=== PATIENT | female | born 1960 | race Caucasian/White ===

== ENCOUNTER 2016-12-02 11:59 | Inpatient (IN) | payer BC ==
[~2016-12-02] VITALS: Ht 154.9 cm; Wt 98.2 kg
[~2016-12-02 11:59] MED LIST: CIPR-255 PO; DTR5 PO; LISI-461 PO; LPR25 PO; OXYC-57 PO; PHEN-1043 PO; VENL75CA PO; VITAMIN B-12 INJ INJ
[2016-12-02] MEDS ORDERED: KETOROLAC TROMETHAMINE 30 MG/ML VIAL IV STA (12:32)
[2016-12-02] MEDS ORDERED: ONDANSETRON INJ 2 MG/ML 2 ML VIAL IV STA (12:32)
[2016-12-02] MEDS ORDERED: SODIUM CHLORIDE 0.9% 1000ML 500 ML IV STA (12:32)
[2016-12-02] MEDS ORDERED: SODIUM CHLORIDE 0.9% 1000ML 1,000 ML IV STA (12:32)
--- NOTE | 2016-12-02 12:36 | EMERGENCY ROOM VISIT NOTE ---
History Report prepared by Ishmael: Braxton Arboleda Under the Supervision of: Dr. Luis Armando Robison M.D. First contact with patient: 12:27 Chief Complaint: FLANK PAIN Stated Complaint: RIGHT FLANK PAIN History of Present Illness The patient is a 56 year old female with a history of kidney stones and kidney cancer with a left kidney removal who presents to the Emergency Room with complaints of persistent right flank pain that started around 4 hours ago. She says that the pain has been a 10 out of 10 in severity, and has never been this bad before. The patient states that she has been nauseated as well. She says that she follows with Dr. Benson of urology, and sees him every 6 months. The patient notes that she is due to see Dr. Benson soon, and she usually has to have a stent put in when she see is passing a stone. The patient denies any vomiting, fevers, chills, or urinary symptoms. Source of History: patient Onset: 4 hours ago Position: other (right flank) Symptom Intensity: 10/10 pain - worst pain ever Timing: other (persistent) Associated Symptoms: + nausea, No fevers, No chills, No vomiting, No urinary symptoms Review of Systems See HPI for pertinent positives & negatives. A total of 10 systems reviewed and were otherwise negative. Past Medical & Surgical Medical Problems: (1) Cancer of kidney (2) History of nephrectomy, unilateral (3) Kidney stone (4) Migraine aura, persistent, intractable (5) Right ureteral calculus (6) Sepsis due to urinary tract infection (7) Ureteral calculi (8) UTI (urinary tract infection) Family History Cancer Diabetes mellitus FH: heart disease FHx: gallbladder disease Hypertension Social History Smoking Status: Never Smoker Drug Use: none Marital Status: Housing Status: lives with significant other Occupation Status: employed Current/Historical Medications Scheduled Lisinopril (Lisinopril), 10 MG PO QAM Metoprolol Tartrate (Lopressor), 12.5 MG PO QAM Venlafaxine Hcl (Effexor Xr), 75 MG PO QAM [Vitamin B-12 Inj], INJ MONTHLY Scheduled PRN Ibuprofen (Motrin), 600 MG PO DAILY PRN for Pain or Fever Allergies Coded Allergies: No Known Allergies (Verified , 12/02/16) Physical Exam Vital Signs Date Time Temp Pulse Resp B/P (MAP) Pulse Ox O2 Delivery O2 Flow Rate FiO2 12/02/16 13:29 71 20 176/100 95 Room Air 12/02/16 12:09 36.7 68 20 185/101 97 Room Air Physical Exam GENERAL: Patient is in no acute distress. HEENT: No acute trauma, normocephalic atraumatic, mucous membranes moist, no nasal congestion, no scleral icterus. NECK: No stridor, no adenopathy, no meningismus, trachea is midline. LUNGS: Clear to auscultation bilaterally, no wheeze, no rhonchi, breath sounds equal. HEART: Without murmurs gallops or rubs, regular rate and rhythm. ABDOMEN: Tender along entire right side. Soft, bowel sounds positive, no hernias , no peritonitis. BACK: Right flank discomfort with percussion. EXTREMITIES: No cyanosis or edema, full range of motion of all the joints without pain or difficulty, no signs for acute trauma. NEUROLOGIC: Oriented x 3, no acute motor or sensory deficits, no focal weakness. SKIN: No rash, no jaundice, no diaphoresis. Medical Decision & Procedures ER Provider Diagnostic Interpretation: CT results as stated below per my review and radiologist interpretation: CT OF THE ABDOMEN AND PELVIS WITHOUT CONTRAST, STONE PROTOCOL CLINICAL HISTORY: Right flank pain and hematuria. COMPARISON STUDY: [facility] October 01, [address] of the abdomen and pelvis January 02, 2010. TECHNIQUE: Helical axial images of the abdomen and pelvis were obtained without IV or oral contrast according to renal stone protocol. A dose lowering technique was utilized adhering to the principles of ALARA. FINDINGS: The left kidney is not visualized and likely is surgically absent. There is moderate right hydroureteronephrosis. Note is made of a 3 mm mid right ureteral calculus shown on image 330 of 516. There are 2 additional distal right ureteral calculi that each measure 6 mm. Multiple right renal calculi measure up to 6 mm. There is mild right perinephric and periureteral ureteral infiltration. Evaluation the remainder of the abdomen and pelvis is suboptimal on this unenhanced exam. No abnormalities are noted within the nephrectomy bed. There is fatty infiltration of the liver. Mild biliary ductal dilatation is unchanged and likely related to prior cholecystectomy. The spleen is unremarkable. There is no bowel obstruction. This colonic diverticulosis without evidence for acute diverticulitis. IMPRESSION: 1. Three right ureteral calculi, including two 6 mm distal ureteral calculi and a 3 mm mid ureteral calculus with resultant moderate right hydroureteronephrosis. 2. Right-sided nephrolithiasis. 3. Surgically absent left kidney. No abnormality within the nephrectomy bed. 4. Status post gastric bypass. No bowel obstruction. Electronically signed by: Ge Goff M.D. 12/02/2016 1:15 PM Dictated Date/Time: 12/02/2016 1:05 PM Laboratory Results 12/02/16 12:25 12/02/16 12:25 Test 12/02/16 12:25 12/02/16 12:27 Red Blood Count 4.42 M/uL (4.2-5.4) Mean Corpuscular Volume 85.1 fL (80-100) Mean Corpuscular Hemoglobin 26.5 pg (25-34) Mean Corpuscular Hemoglobin Concent 31.1 g/dl (32-36) RDW Standard Deviation 43.4 fL (36.4-46.3) RDW Coefficient of Variation 13.9 % (11.5-14.5) Mean Platelet Volume 9.2 fL (7.4-10.4) Anion Gap 6.0 mmol/L (3-11) Est Creatinine Clear Calc Drug Dose 63.4 ml/min Estimated GFR () 65.5 Estimated GFR (Non- 56.5 BUN/Creatinine Ratio 19.0 (10-20) Calcium Level 9.7 mg/dl (8.5-10.1) Urine Color YELLOW Urine Appearance CLOUDY (CLEAR) Urine pH 5.0 (4.5-7.5) Urine Specific [place] 1.016 (1.000-1.030) Urine Protein 1+ (NEG) Urine Glucose (UA) NEG (NEG) Urine Ketones NEG (NEG) Urine Occult Blood 3+ (NEG) Urine Nitrite NEG (NEG) Urine Bilirubin NEG (NEG) Urine Urobilinogen NEG (NEG) Urine Leukocyte Esterase TRACE (NEG) Urine WBC (Auto) 1-5 /hpf (0-5) Urine RBC (Auto) >30 /hpf (0-4) Urine Hyaline Casts (Auto) 1-5 /lpf (0-5) Urine Epithelial Cells (Auto) >30 /lpf (0-5) Urine Bacteria (Auto) NEG (NEG) Laboratory results reviewed by me. Medications Administered Medications (Trade) Dose Ordered Sig/Silvestre Route Start Time Stop Time Status Last Admin Dose Admin Sodium Chloride 500 ml @ 999 mls/hr Q31M STAT IV 12/02/16 12:32 12/02/16 13:02 DC 12/02/16 12:32 999 MLS/HR Ondansetron HCl (Zofran Inj) 4 mg NOW STAT IV 12/02/16 12:32 12/02/16 12:35 DC 12/02/16 12:42 4 MG Sodium Chloride 1,000 ml @ 200 mls/hr Q5H STAT IV 12/02/16 12:32 12/02/16 17:31 12/02/16 13:28 200 MLS/HR Morphine Sulfate (MoRPHine SULFATE INJ) 4 mg Q15M PRN IV 12/02/16 12:45 12/16/16 12:44 12/02/16 13:26 4 MG Ketorolac Tromethamine (Toradol Inj) 15 mg NOW STAT IV 12/02/16 12:32 12/02/16 12:35 DC 12/02/16 12:43 15 MG ED Course 1230: The patient was evaluated in room C9. A complete history and physical exam was performed. 1232: Ordered Toradol Inj 15 mg IV, NSS 1000 ml @ 200 mls/hr IV, Zofran Inj 4 mg IV, NSS 500 ml @ 999 mls/hr IV. 1245: Ordered Morphine Sulfate Inj 4 mg IV PRN. 1328: I discussed the patient with Pam Marie PA-C for Dr. Benson ( [facility] urology) - she will talk to the attending (Dr. Cespedes) about stenting the patient today or tomorrow. Regardless, the patient will be brought into the hospital, and she told me to call the hospitalist. 1332: Upon reexamination the patient is resting. I discussed results and treatment plan with the patient. She verbalizes agreement and understanding. The patient will be evaluated for further management. 1345: I discussed the patient with Dr. Hemphill - [facility] hospitalist - he will evaluate the patient for further treatment. Medical Decision Differential diagnosis includes but is not limited to renal colic, UTI, renal failure, hydronephrosis, musculoskeletal pain, dehydration. There is a mild leukocytosis, this could be consistent with infection or just her pain. No anemia. No significant electrolyte abnormality or kidney failure. Urinalysis does not show infection but hematuria was noted. Abdominal and pelvis CT shows 3 fairly large stones in the right ureter causing hydronephrosis. The patient received IV saline, IV Toradol, IV Zofran and IV morphine, she still has pain but the pain is improved. I spoke to urology. Admission/observation was recommended--she only has one kidney. That kidney right now is obstructed. She will likely require a ureteral stent. I spoke to case management and the patient. The on-call hospitalist was consulted. Medication Reconcilliation Current Medication List: was personally reviewed by me Blood Pressure Screening Patient's blood pressure: Elevated blood pressure Blood pressure disposition: Elevated BP felt to be situational Consults Time Called: 1325 Consulting Physician: Pam Marie PA-C for Dr. Benson ([facility] urology) Returned Call: 1328 I discussed the patient with Pam Marie PA-C for Dr. Benson ([facility] urology) - she will talk to the attending (Dr. Cespedes) about stenting the patient today or tomorrow. Regardless, the patient will be brought into the hospital, and she told me to call the hospitalist. Additional Consults: Time Called: 1340 Consulted Physician[facility] Returned Call: 1345 (in person) Additional Comments: I discussed the patient with Dr. Joby ONTIVEROS hospitalist - he will evaluate the patient for further treatment. Impression Primary Impression: Renal colic Additional Impression: Hydronephrosis Scribe Attestation The scribe's documentation has been prepared under my direction and personally reviewed by me in its entirety. I confirm that the note above accurately reflects all work, treatment, procedures, and medical decision making performed by me. Departure Information Dispostion Being Evaluated By Hospitalist Referrals No Doctor, Assigned (PCP) Patient Instructions My [facility] Problem Qualifiers
[2016-12-02] MEDS: MoRPHine SULFATE 4 MG/ML 1 ML CARP\\VIAL IV PRN ×2 (12:44→13:26)
[2016-12-02 13:02] LABS: HEMATOCRIT 37.6 % (37-47); MEAN CELL VOLUME 85.1 fL (80-100); MEAN CORPUSCULAR HEMOGLOBIN 26.5 pg (25-34); MEAN CORPUSCULAR HGB CONC 31.1 g/dl (32-36); MEAN PLATELET VOLUME 9.2 fL (7.4-10.4); PLATELET COUNT 334 K/uL (130-400); RED BLOOD COUNT 4.42 M/uL (4.2-5.4); WHITE BLOOD COUNT 11.52 K/uL (4.8-10.8)
--- NOTE | 2016-12-02 13:16 | DIAGNOSTIC IMAGING REPORT ---
CT OF THE ABDOMEN AND PELVIS WITHOUT CONTRAST, STONE PROTOCOL CLINICAL HISTORY: Right flank pain and hematuria. COMPARISON STUDY: [facility] October 01, [address] of the abdomen and pelvis January 02, 2010. TECHNIQUE: Helical axial images of the abdomen and pelvis were obtained without IV or oral contrast according to renal stone protocol. A dose lowering technique was utilized adhering to the principles of ALARA. FINDINGS: The left kidney is not visualized and likely is surgically absent. There is moderate right hydroureteronephrosis. Note is made of a 3 mm mid right ureteral calculus shown on image 330 of 516. There are 2 additional distal right ureteral calculi that each measure 6 mm. Multiple right renal calculi measure up to 6 mm. There is mild right perinephric and periureteral ureteral infiltration. Evaluation the remainder of the abdomen and pelvis is suboptimal on this unenhanced exam. No abnormalities are noted within the nephrectomy bed. There is fatty infiltration of the liver. Mild biliary ductal dilatation is unchanged and likely related to prior cholecystectomy. The spleen is unremarkable. There is no bowel obstruction. This colonic diverticulosis without evidence for acute diverticulitis. IMPRESSION: 1. Three right ureteral calculi, including two 6 mm distal ureteral calculi and a 3 mm mid ureteral calculus with resultant moderate right hydroureteronephrosis. 2. Right-sided nephrolithiasis. 3. Surgically absent left kidney. No abnormality within the nephrectomy bed. 4. Status post gastric bypass. No bowel obstruction. Electronically signed by: Ge Goff M.D. 12/02/2016 1:15 PM Dictated Date/Time: 12/02/2016 1:05 PM
[2016-12-02] MEDS ORDERED: IBUP-1450 PO (13:18)
[2016-12-02 13:19] LABS: CALCIUM 9.7 mg/dl (8.5-10.1); CREATININE 1.1 mg/dl (0.60-1.20); POTASSIUM 4.1 mmol/L (3.5-5.1)
[2016-12-02] MEDS ORDERED: ONDANSETRON INJ 2 MG/ML 2 ML VIAL IV PRN (14:00)
[2016-12-02 14:07] LABS: URINE APPEARANCE CLOUDY (CLEAR); URINE BILIRUBIN NEG (NEG); URINE COLOR YELLOW; URINE EPITHELIAL CELL AUTO >30 /lpf (0-5); URINE NITRITE NEG (NEG); URINE SPECIFIC GRAVITY 1.016 (1.000-1.030); UROBILINOGEN NEG (NEG); ZZUR CULT IF INDIC CLEAN CATCH NO
[2016-12-02 14:10] LABS: MANUAL MICROSCOPIC REQUIRED? NO; REVIEW REQ? NO
--- NOTE | 2016-12-02 14:40 | DIAGNOSTIC IMAGING REPORT ---
CHEST 2 VIEWS ROUTINE HISTORY: 56 years-old Female preoperative exam. No acute chest complaints. COMPARISON: Portable chest radiograph 08/21/2015 TECHNIQUE: Frontal and lateral views of the chest. FINDINGS: Cardiomediastinal and hilar silhouettes are within normal limits. Mild elevation of the right hemidiaphragm persists without pneumothorax, pleural effusion or focal airspace consolidation. No overt pulmonary edema. Surgical clips are noted within the upper abdomen. IMPRESSION: Unchanged mild right hemidiaphragmatic elevation without acute cardiopulmonary process. The above report was generated using voice recognition software. It may contain grammatical, syntax or spelling errors. Electronically signed by: Simone Blankenship M.D. 12/02/2016 2:38 PM Dictated Date/Time: 12/02/2016 2:37 PM
--- NOTE | 2016-12-02 14:49 | History and Physical ---
History & Physical Date & Time of Service: Dec 02, 2016 at 14:42 Chief Complaint: Right Flank Pain Primary Care Physician: Simon Ty M.D. History of Present Illness Source: patient, spouse, hospital records The patient is a 56-year-old female who is status post left nephrectomy due to renal cell cancer, who presents emergency department with persistent right flank pain that began about 4 hours prior to arrival. She has a known history of kidney stones, and reports the pain is similar to previous. She's also had some nausea without vomiting. She follows with , whom she sees approximately every 6 months. She has had a history of ureteral stents in the past. Past Medical/Surgical History Medical Problems: (1) Cancer of kidney Status: Chronic (2) History of nephrectomy, unilateral Status: Resolved (3) Kidney stone Status: Chronic Family History Cancer Diabetes mellitus FH: heart disease FHx: gallbladder disease Hypertension Social History Smoking Status: Never Smoker Smokeless Tobacco Use: No Alcohol Use: none Drug Use: none Marital Status: Housing status: lives with family Occupational Status: employed Immunizations History of Influenza Vaccine: No History of Tetanus Vaccine?: Yes History of Pneumococcal: No History of Hepatitis B Vaccine: Yes Multi-Drug Resistant Organisms History of MDRO: No Allergies Coded Allergies: No Known Allergies (Verified , 12/02/16) Home Medications Scheduled Lisinopril (Lisinopril), 10 MG PO QAM Metoprolol Tartrate (Lopressor), 12.5 MG PO QAM Venlafaxine Hcl (Effexor Xr), 75 MG PO QAM [Vitamin B-12 Inj], INJ MONTHLY Scheduled PRN Ibuprofen (Motrin), 600 MG PO DAILY PRN for Pain or Fever Review of Systems The patient denies chest pain, palpitations, shortness of breath, cough, lower extremity swelling, vision change, hearing change, sore throat, fevers, chills, sweats, weight change, fatigue, vomiting, diarrhea or constipation, blood in urine or stool, dysuria, urinary frequency or urgency, lightheadedness, dizziness, headache, memory loss, rash, abnormal bruising or bleeding, imbalance , focal or generalized weakness, numbness or tingling in arms or legs, generalized arthralgias or myalgias, neck pain, night sweats, or allergy symptoms. The review of systems is otherwise negative other than for that already noted above, and at least 10 systems have been reviewed. Physical Exam Vital Signs Date Time Temp Pulse Resp B/P (MAP) Pulse Ox O2 Delivery O2 Flow Rate FiO2 12/02/16 13:29 71 20 176/100 95 Room Air 12/02/16 12:09 36.7 68 20 185/101 97 Room Air The patient is awake, well-developed and adequately nourished, alert and oriented 3, normocephalic and atraumatic, lying in bed and in no acute distress. HEENT--PERRL, EOMI, mucous membranes and oropharynx dry. Neck--supple, no JVD or bruits, thyroid normal, trachea midline, no adenopathy. Heart--normal S1 and S2, no extra beats, no murmurs, rubs or gallops. Lungs--clear bilaterally with good air movement, no respiratory distress, no accessory muscle use. Abdomen--normal bowel sounds and soft, nontender and nondistended, no hernias or masses, no organomegaly. Right flank pain upon palpation. Extremities--no cyanosis, clubbing or edema. There are good distal pulses b/l. Dermatologic--normal skin turgor, normal color, warm and dry, no abnormal lymph nodes, no rash. Neurologic--cranial nerves II through XII grossly intact, motor and sensory examination normal. Rheumatologic--normal range of motion, nontender, muscles and joints. Psychiatric--normal affect. Diagnostics Laboratory Results Results Past 24 Hours Test 12/02/16 12:25 12/02/16 12:27 Range/Units White Blood Count 11.52 4.8-10.8 K/uL Red Blood Count 4.42 4.2-5.4 M/uL Hemoglobin 11.7 12.0-16.0 g/dL Hematocrit 37.6 37-47 % Mean Corpuscular Volume 85.1 80-100 fL Mean Corpuscular Hemoglobin 26.5 25-34 pg Mean Corpuscular Hemoglobin Concent 31.1 32-36 g/dl RDW Standard Deviation 43.4 36.4-46.3 fL RDW Coefficient of Variation 13.9 11.5-14.5 % Platelet Count 334 130-400 K/uL Mean Platelet Volume 9.2 7.4-10.4 fL Sodium Level 142 136-145 mmol/L Potassium Level 4.1 3.5-5.1 mmol/L Chloride Level 108 98-107 mmol/L Carbon Dioxide Level 28 21-32 mmol/L Anion Gap 6.0 3-11 mmol/L Blood Urea Nitrogen 21 7-18 mg/dl Creatinine 1.10 0.60-1.20 mg/dl Est Creatinine Clear Calc Drug Dose 63.4 ml/min Estimated GFR () 65.5 Estimated GFR (Non- 56.5 BUN/Creatinine Ratio 19.0 10-20 Random Glucose 117 70-99 mg/dl Calcium Level 9.7 8.5-10.1 mg/dl Urine Color YELLOW Urine Appearance CLOUDY CLEAR Urine pH 5.0 4.5-7.5 Urine Specific Ola 1.016 1.000-1.030 Urine Protein 1+ NEG Urine Glucose (UA) NEG NEG Urine Ketones NEG NEG Urine Occult Blood 3+ NEG Urine Nitrite NEG NEG Urine Bilirubin NEG NEG Urine Urobilinogen NEG NEG Urine Leukocyte Esterase TRACE NEG Urine WBC (Auto) 1-5 0-5 /hpf Urine RBC (Auto) >30 0-4 /hpf Urine Hyaline Casts (Auto) 1-5 0-5 /lpf Urine Epithelial Cells (Auto) >30 0-5 /lpf Urine Bacteria (Auto) NEG NEG Microbiology Results 12/02/16 Urine Culture, Received Pending Diagnostic Radiology Patient Name: ISAIAH IVY Unit Number: [id number] Dictated: 12/02/161304 Transcribed: 12/02/161304 Printed Date/Time: [~ rep prt dt]/[~ rep prt tm] [~ rep ct labl] - [~ rep ct ivnm] [facility] [place] [address] Dictated: 12/02/161304 Transcribed: 12/02/161304 Printed Date/Time: [~ rep prt dt]/[~ rep prt tm] [~ rep ct labl] - [~ rep ct ivnm] [~ rep ct add3]] CT OF THE ABDOMEN AND PELVIS WITHOUT CONTRAST, STONE PROTOCOL CLINICAL HISTORY: Right flank pain and hematuria. COMPARISON STUDY: [facility] October 01, [address] of the abdomen and pelvis January 02, 2010. TECHNIQUE: Helical axial images of the abdomen and pelvis were obtained without IV or oral contrast according to renal stone protocol. A dose lowering technique was utilized adhering to the principles of ALARA. FINDINGS: The left kidney is not visualized and likely is surgically absent. There is moderate right hydroureteronephrosis. Note is made of a 3 mm mid right ureteral calculus shown on image 330 of 516. There are 2 additional distal right ureteral calculi that each measure 6 mm. Multiple right renal calculi measure up to 6 mm. There is mild right perinephric and periureteral ureteral infiltration. Evaluation the remainder of the abdomen and pelvis is suboptimal on this unenhanced exam. No abnormalities are noted within the nephrectomy bed. There is fatty infiltration of the liver. Mild biliary ductal dilatation is unchanged and likely related to prior cholecystectomy. The spleen is unremarkable. There is no bowel obstruction. This colonic diverticulosis without evidence for acute diverticulitis. IMPRESSION: 1. Three right ureteral calculi, including two 6 mm distal ureteral calculi and a 3 mm mid ureteral calculus with resultant moderate right hydroureteronephrosis. 2. Right-sided nephrolithiasis. 3. Surgically absent left kidney. No abnormality within the nephrectomy bed. 4. Status post gastric bypass. No bowel obstruction. Electronically signed by: Ge Goff M.D. 12/02/2016 1:15 PM Dictated Date/Time: 12/02/2016 1:05 PM The status of this report is Signed. Draft = Not yet reviewed or approved by Radiologist. Signed = Reviewed and approved by Radiologist. <AttendingPhy></AttendingPhy> <FamilyPhy></FamilyPhy> <PrimaryPhy>No Doctor, Assigned</PrimaryPhy> <UnitNumber>[id number]</UnitNumber> <VisitNumber> [id number]</VisitNumber> <PatientName>ISAIAH IVY</PatientName> <DateOfBirth> 1960</DateOfBirth> <Location>[facility]</Location> <ServiceDate>12/02/16</ ServiceDate> <MNE>ESINDI</MNE> <OrderingPhy>Luis Armando Robison M.D.</OrderingPhy> < OrderingPhyMNE>f rep ord dr geiger</OrderingPhyMNE> <DictatingPhyMNE>f rep dict dr mne</DictatingPhyMNE> <CCListMNE>f rep ct mne</CCListMNE> <AdmittingPhyMNE>f pt admit dr geiger</AdmittingPhyMNE> <AttendingPhyMNE>f pt attend dr geiger</ AttendingPhyMNE> <ConsultingPhyMNE>f pt consult dr geiger</ConsultingPhyMNE> <FamilyPhyMNE>f pt fam dr geiger</FamilyPhyMNE> <OtherPhyMNE>f pt other dr geiger</OtherPhyMNE> < PrimaryPhyMNE>f pt prim care dr geiger</PrimaryPhyMNE> <ReferringPhyMNE>f pt referring dr geiger</ReferringPhyMNE> Patient Name: ISAIAH IVY Unit Number: [id number] Dictated: 12/02/161436 Transcribed: 12/02/161436 JRB Printed Date/Time: [~ rep prt dt]/[~ rep prt tm] [~ rep ct labl] - [~ rep ct ivnm] [facility] [place] [address] Dictated: 12/02/161436 Transcribed: 12/02/161436 JRB Printed Date/Time: [~ rep prt dt]/[~ rep prt tm] [~ rep ct labl] - [~ rep ct ivnm] [~ rep ct add3]] CHEST 2 VIEWS ROUTINE HISTORY: 56 years-old Female preoperative exam. No acute chest complaints. COMPARISON: Portable chest radiograph 08/21/2015 TECHNIQUE: Frontal and lateral views of the chest. FINDINGS: Cardiomediastinal and hilar silhouettes are within normal limits. Mild elevation of the right hemidiaphragm persists without pneumothorax, pleural effusion or focal airspace consolidation. No overt pulmonary edema. Surgical clips are noted within the upper abdomen. IMPRESSION: Unchanged mild right hemidiaphragmatic elevation without acute cardiopulmonary process. The above report was generated using voice recognition software. It may contain grammatical, syntax or spelling errors. Electronically signed by: Simone Blankenship M.D. 12/02/2016 2:38 PM Dictated Date/Time: 12/02/2016 2:37 PM The status of this report is Signed. Draft = Not yet reviewed or approved by Radiologist. Signed = Reviewed and approved by Radiologist. <AttendingPhy></AttendingPhy> <FamilyPhy>Simon Ty M.D.</FamilyPhy> < PrimaryPhy>Simon Ty M.D.</PrimaryPhy> <UnitNumber>[id number]</UnitNumber > <VisitNumber>[id number]</VisitNumber> <PatientName>ISAIAH IVY</PatientName > <DateOfBirth>1960</DateOfBirth> <Location>[facility]</Location> <ServiceDate> 12/02/16</ServiceDate> <MNE>ESINDI</MNE> <OrderingPhy>Pam Geller</ OrderingPhy> <OrderingPhyMNE>f rep ord dr geiger</OrderingPhyMNE> <DictatingPhyMNE> f rep dict dr geiger</DictatingPhyMNE> <CCListMNE>f rep ct juanjo</CCListMNE> < AdmittingPhyMNE>f pt admit dr geiger</AdmittingPhyMNE> <AttendingPhyMNE>f pt attend dr geiger</AttendingPhyMNE> <ConsultingPhyMNE>f pt consult dr geiger</ConsultingPhyMNE> <FamilyPhyMNE>f pt fam dr geiger</FamilyPhyMNE> <OtherPhyMNE>f pt other dr geiger</OtherPhyMNE> < PrimaryPhyMNE>f pt prim care dr geiger</PrimaryPhyMNE> <ReferringPhyMNE>f pt referring dr geiger</ReferringPhyMNE> Impression Assessment and Plan Right ureteral calculi 3 with moderate right hydronephrosis/status post left nephrectomy for renal cell cancer--the patient be admitted to medical surgical floor. Nothing by mouth except medications. NSS with KCl 20 mEq at 100 mils per hour. Ceftriaxone 1 g IV daily. Follow urine culture and sensitivity. Dilaudid 0.5-1 mg IV every 2 hours when necessary severe pain. Consult her urologist Dr. Benson. Patient should avoid NSAIDs both inpatient and outpatient, in particular in combination with MIKO inhibitors. Hypertension--continue metoprolol tartrate the change from 12.5 mg every morning to twice a day. Follow-up lisinopril 10 mg by mouth every morning. Depression--continue Effexor XR 75 mg by mouth every morning Vitamin B12 deficiency-- gets monthly injections. Level of Care Med/Surg Advanced Directives Existing Advance Directive: No Existing Living Will: No Existing Power of Warehouse Distribution Manager: No Resuscitation Status FULL RESUSCITATION VTE Prophylaxis VTE Risk Assessment Done? Y/N: Yes Risk Level: Moderate Given or contraindicated: SCD's Social Service Consult None Apply
[2016-12-02 15:41] VITALS: BP 158/81; PULSE 81; TEMP 36.7; O2SAT 91
[2016-12-02] MEDS ORDERED: CEFTRIAXONE SOD INJ 1 GM in DEXTROSE 5% ADD-VANTAGE 50ML 50 ML IV SCH (16:00)
[2016-12-02] MEDS: NSS + 20MEQ KCL 1000ML 1,000 ML IV SCH (16:01)
[2016-12-02 16:08] VITALS: Ht 154.9 cm; Wt 98.2 kg
[2016-12-02] MEDS: HYDROmorphone INJ 1 MG/ML SYR IV PRN ×2 (16:44→19:26)
[2016-12-02] MEDS: FAMOTIDINE IV INJ 20 MG in DEXTROSE 5% 100ML 100 ML IV SCH (17:41)
[2016-12-02] MEDS: METOPROLOL TARTRATE 25 MG TAB PO SCH (21:08)
[2016-12-02] MEDS: ACETAMINOPHEN 325 MG TAB PO PRN (21:08)
[2016-12-02] MEDS: HYDROmorphone INJ 0.5 MG/0.5 ML SYR IV PRN (22:15)
[2016-12-03] VITALS: O2SAT 94
[2016-12-03 00:27] VITALS: BP 119/70; PULSE 57; TEMP 36.6; O2SAT 96
[2016-12-03] MEDS: NSS + 20MEQ KCL 1000ML 1,000 ML IV SCH (01:50)
[2016-12-03] MEDS: HYDROmorphone INJ 0.5 MG/0.5 ML SYR IV PRN (01:50)
[2016-12-03] MEDS: FAMOTIDINE IV INJ 20 MG in DEXTROSE 5% 100ML 100 ML IV SCH (06:03)
[2016-12-03] MEDS: ACETAMINOPHEN 325 MG TAB PO PRN (06:06)
[2016-12-03] MEDS ORDERED: CIPROFLOXACIN 400MG / 200ML D5W IV ONE (07:35)
--- NOTE | 2016-12-03 07:42 | Urology Consultation ---
History General Date of Service: Dec 03, 2016. Chief Complaint: right flank pain Primary Care Physician: Simon Ty M.D. Pt seen a urologist before?: Yes (Dr. Clifford Benson) If yes, why?: nephrolithiasis History of Present Illness 56 yo female presents to [facility] with c/o right flank pain that started yesterday. The pain was accompanied by nausea. Denies dysuria or hematuria. CT scan shows a she is passing 3 right ureteral stones. The largest is a 6mm distal right ureteral stone. She does have a previous hx of stones requiring ESWL and URS/LL in the past. She sees Dr. Benson for this issue. She is mononephric d/t hx of RCC. Labs pending this morning. UC&S pending as well. Imaging Imaging: CT Laboratory Last 24 Hours Test 12/02/16 12:25 12/02/16 12:27 12/03/16 04:44 White Blood Count 11.52 K/uL Red Blood Count 4.42 M/uL Hemoglobin 11.7 g/dL Hematocrit 37.6 % Mean Corpuscular Volume 85.1 fL Mean Corpuscular Hemoglobin 26.5 pg Mean Corpuscular Hemoglobin Concent 31.1 g/dl RDW Standard Deviation 43.4 fL RDW Coefficient of Variation 13.9 % Platelet Count 334 K/uL Mean Platelet Volume 9.2 fL Sodium Level 142 mmol/L Potassium Level 4.1 mmol/L Chloride Level 108 mmol/L Carbon Dioxide Level 28 mmol/L Anion Gap 6.0 mmol/L Blood Urea Nitrogen 21 mg/dl Creatinine 1.10 mg/dl Est Creatinine Clear Calc Drug Dose 63.4 ml/min Estimated GFR () 65.5 Estimated GFR (Non- 56.5 BUN/Creatinine Ratio 19.0 Random Glucose 117 mg/dl Calcium Level 9.7 mg/dl Urine Color YELLOW Urine Appearance CLOUDY Urine pH 5.0 Urine Specific Harmans 1.016 Urine Protein 1+ Urine Glucose (UA) NEG Urine Ketones NEG Urine Occult Blood 3+ Urine Nitrite NEG Urine Bilirubin NEG Urine Urobilinogen NEG Urine Leukocyte Esterase TRACE Urine WBC (Auto) 1-5 /hpf Urine RBC (Auto) >30 /hpf Urine Hyaline Casts (Auto) 1-5 /lpf Urine Epithelial Cells (Auto) >30 /lpf Urine Bacteria (Auto) NEG Problem List Medical Problems: (1) Fever Status: Acute (2) Hydronephrosis Status: Acute (3) Renal colic Status: Acute Past History cancer (RCC), hypertension, kidney stones, other (Vit B12 deficiency) Past Surgical History: , cholecystectomy, gastric bypass, hysterectomy , lithotripsy, nephrectomy, ureteral stent Family History Cancer Diabetes mellitus FH: heart disease FHx: gallbladder disease Hypertension Social History Hx Tobacco Use In Past Year?: No Smoking: non-smoker Alcohol: never Marital status: Housing status: lives with family Occupation status: employed Immunizations History of Influenza Vaccine: No History of Tetanus Vaccine?: Yes History of Pneumococcal: No History of Hepatitis B Vaccine: Yes History of MDRO No Allergies Coded Allergies: No Known Allergies (Verified , 12/02/16) Medications Home Medications: Home Meds and Scripts Medications Dose Route/Sig Max Daily Dose Days Date Category Dose Instructions Motrin (Ibuprofen) 600 Mg Tab 600 Mg PO DAILY PRN 12/02/16 Reported TAKE WITH FOOD Effexor Xr (Venlafaxine Hcl) 75 Mg Cap 75 Mg PO QAM 30 08/21/15 Reported Lisinopril 10 Mg Tab 10 Mg PO QAM 08/14/15 Reported [Vitamin B-12 Inj] INJ MONTHLY 08/01/12 Reported Lopressor (Metoprolol Tartrate) 25 Mg Tab 12.5 Mg PO QAM 08/01/12 Reported Inpatient Medications: Current Inpatient Medications Medications (Trade) Dose Ordered Sig/Silvestre Route Start Time Stop Time Status Last Admin Dose Admin Ceftriaxone Sodium 1 gm/ Dextrose 50 ml @ 100 mls/hr Q24H IV 12/02/16 16:00 12/12/16 15:59 12/02/16 16:02 100 MLS/HR Acetaminophen (Tylenol Tab) 650 mg Q4H PRN PO 12/02/16 14:00 01/01/17 13:59 12/03/16 06:06 650 MG Ondansetron HCl (Zofran Inj) 4 mg Q6H PRN IV 12/02/16 14:00 01/01/17 13:59 Potassium Chloride/Sodium Chloride 1,000 ml @ 100 mls/hr Q10H IV 12/02/16 16:00 01/01/17 15:59 12/03/16 01:50 100 MLS/HR Famotidine 20 mg/ Dextrose 102 ml @ 200 mls/hr Q12H IV 12/02/16 18:00 01/01/17 17:59 12/03/16 06:03 200 MLS/HR Hydromorphone HCl (Dilaudid Inj) 1 mg Q2H PRN IV 12/02/16 14:00 12/16/16 13:59 12/02/16 19:26 1 MG Hydromorphone HCl (Dilaudid Inj) 0.5 mg Q2H PRN IV 12/02/16 14:00 12/16/16 13:59 12/03/16 01:50 0.5 MG Lisinopril (Zestril Tab) 10 mg QAM PO 12/03/16 08:00 01/02/17 08:59 Metoprolol Tartrate (Lopressor Tab) 12.5 mg BID PO 12/02/16 20:00 01/01/17 20:59 12/02/16 21:08 12.5 MG Venlafaxine HCl (effeXOR EXTENDED REL CAP) 75 mg QAM PO 12/03/16 08:00 01/02/17 08:59 Review of Systems Review of Systems Constitutional: No fever, No chills Eyes: No double vision Neurological: No dizzy Endocrine: No excessive thirst Gastrointestinal: + abdominal pain (RLQ and flank ), No nausea, No vomiting Cardiovascular: No chest pain Respiratory: No shortness of breath Skin: No rash Musculoskeletal: + back pain (right low back and flank ) Female : No painful urination, No blood in urine Physical Exam Vital Signs: Vital Signs Past 12 Hours Date Time Temp Pulse Resp B/P (MAP) Pulse Ox O2 Delivery O2 Flow Rate FiO2 12/03/16 00:27 36.6 57 18 119/70 (86) 96 Room Air 12/03/16 00:00 94 Room Air Physical Exam: General Appearance: no apparent distress, + obese Eyes: bilateral eyes normal inspection ENT: hearing grossly normal Neck: no JVD Respiratory/Chest: no respiratory distress, no accessory muscle use Cardiovascular: no JVD Extremities: normal inspection Neurologic/Psychiatric: alert, normal mood/affect, oriented x 3 Skin: normal color Assessment & Plan Assessment & Plan Treatment Planned: cystoscopy w/ stent A/P: Right ureteral stone x 3 AFVSS. Recommend cysto with right ureteral stent placement this morning as the pt is mononephric. Risks and benefits of the procedure discussed with the pt. All questions answered. Pt agrees to the procedure at this time. Consent obtained. Pre-op chest x-ray and EKG obtained. Will provide pre-op Cipro. Will plan for definitive stone management as an outpatient with ESWL vs URS/LL. Thanks for the consult. Will continue to follow along with primary service.
[2016-12-03] MEDS ORDERED: MIDAZOLAM HCL 1 MG/ML 2ML VIAL ONE (07:43)
[2016-12-03] MEDS ORDERED: LIDOCAINE HCL 2% 2 ML VIAL (20MG/ML) ONE (07:43)
[2016-12-03] MEDS ORDERED: ONDANSETRON INJ 2 MG/ML 2 ML VIAL ONE (07:43)
[2016-12-03] MEDS ORDERED: PROPOFOL IV EMULSION 10 MG/ML 20 ML VIAL IV ONE (07:43)
[2016-12-03] MEDS ORDERED: FENTANYL CITRATE INJ 50 MCG/1 ML 2 ML VIAL ONE (07:43)
[2016-12-03] MEDS ORDERED: DEXAMETHASONE SOD INJ 4 MG/ML VIAL ONE (07:43)
[2016-12-03 07:54] LABS: BASO % 0.3 %; BASO ABS # 0.02 K/uL (0-0.2); COMPLETE YES; EOS % 2.1 %; HEMATOCRIT 33.5 % (37-47); IG% 0.3 %; LYMPH % 31.2 %; LYMPH ABS # 2.04 K/uL (1.2-3.4); MEAN CELL VOLUME 85.9 fL (80-100); MEAN CORPUSCULAR HEMOGLOBIN 27.2 pg (25-34); MEAN CORPUSCULAR HGB CONC 31.6 g/dl (32-36); MONO % 6.7 %; NEUT % 59.4 %; PLATELET COUNT 257 K/uL (130-400); WHITE BLOOD COUNT 6.54 K/uL (4.8-10.8)
[2016-12-03 07:56] VITALS: BP 143/85; PULSE 73; TEMP 36.8; O2SAT 93
[2016-12-03] MEDS ORDERED: LISINOPRIL 10 MG TAB PO SCH (08:00)
[2016-12-03] MEDS ORDERED: VENLAFAXINE HCL XR 75 MG CAPXR PO SCH (08:00)
[2016-12-03] MEDS ORDERED: ATROPINE SULFATE 0.1 MG/ML 5ML SYR IV PRN (08:15)
[2016-12-03] MEDS ORDERED: FENTANYL CITRATE INJ 50 MCG/1 ML 2 ML VIAL IV PRN (08:15)
[2016-12-03] MEDS ORDERED: EpHEDrine SULFATE INJ 50 MG/ML AMP IV PRN (08:15)
[2016-12-03] MEDS ORDERED: ONDANSETRON INJ 2 MG/ML 2 ML VIAL IV PRN (08:15)
[2016-12-03 08:28] LABS: CALCIUM 8.9 mg/dl (8.5-10.1); CREATININE 0.99 mg/dl (0.60-1.20); MAGNESIUM 2.3 mg/dl (1.8-2.4); POTASSIUM 4.2 mmol/L (3.5-5.1)
--- NOTE | 2016-12-03 08:52 | DIAGNOSTIC IMAGING REPORT ---
KUB HISTORY: Renal STONES COMPARISON: KUB 10/01/2015. Abdomen and pelvis CT 12/02/2016. FINDINGS: The bowel gas pattern is unremarkable. There are no dilated loops of small bowel to suggest an obstruction. Stable round calcifications within the left pelvis consistent with phleboliths. No pneumoperitoneum or pneumatosis. There are 2 stones within the lower pole of the right kidney with the largest measuring 6 mm. A 7 mm calcification within the right deep pelvis is demonstrated to be a phlebolith on the previous study. No right ureteral calculi identified. Surgical clips within the left upper quadrant consistent with prior left nephrectomy and gastric bypass. IMPRESSION: 1. Stable right-sided nephrolithiasis. 2. No ureteral calculi. Electronically signed by: Garrett Jean Baptiste M.D. 12/03/2016 8:51 AM Dictated Date/Time: 12/03/2016 8:48 AM
[2016-12-03] MEDS ORDERED: CONRAY 30% 150ML BOTTLE ONE (09:14)
--- NOTE | 2016-12-03 09:58 | [facility] Post Operative Brief Note ---
Immediate Operative Summary Operative Date Dec 03, 2016. Pre-Operative Diagnosis Right ureteral and renal stones, solitary kidney Post-Operative Diagnosis Same as preop Procedure(s) Performed Cystoscopy, Right Retrograde pyleogram, right Ureteral Stent insertion Surgeon Dr. Derian Cespedes Cnc Machine Setter Surgeon(s) NA Estimated Blood Loss 0 ml Findings Good stent position after completion, stones not clearly seen on housing relocation despite being present on KUB Specimens None, as per surgeon Drains 6 fr multilength ureteral stent Anesthesia MAC Complication(s) None Disposition Recovery Room / PACU
[2016-12-03] MEDS ORDERED: OXYC-57 PO (10:00)
[2016-12-03] MEDS ORDERED: CIPR250T3 PO (10:00)
--- NOTE | 2016-12-03 10:02 | Discharge Instructions ---
Discharge Instructions Date of Service Dec 03, 2016. Admission Reason for Admission: Right Flank Pain Discharge Discharge Diagnosis / Problem: R ureteral stones s/p stent in solitary kidney Discharge Goals Goal(s): Improve function, Improve disease control, Therapeutic intervention Activity Recommendations Activity Limitations: as noted below Lifting Limitations: no more than 25 pounds, gradually increase as tolerated Exercise/Sports Limitations: rest today, gradually increase as tolerated May Resume Sexual Activity: when tolerated Shower/Bathe: no limitations Driving or Machine Use: resume 1 day after discharge . Instructions / Follow-Up Instructions / Follow-Up Office will call to arrange for f/u - call if haven't been contacted by tomorrow morning Discharge Diet Recommended Diet: Regular Diet (good fluid intake) Procedures Procedures Performed: Cystoscopy, Right Retrograde pyleogram, right Ureteral Stent insertion Pending Studies Studies pending at discharge: no Medical Emergencies . Who to Call and When: Medical Emergencies: If at any time you feel your situation is an emergency, please call 911 immediately. . Non-Emergent Contact Non-Emergency issues call your: Urologist Call Non-Emergent contact if: you have a fever, temperature is above 101, your pain is not controlled, your pain is worsening, your pain is unusual for you, your pain is concerning you, you have any medication questions . . "Provider Documentation" section prepared by Jamari Cespedes. . VTE Core Measure Inpt VTE Proph given/why not?: SCD's [place] Drug Monitoring Program Search Results: patient reviewed within database, no issues identified
[2016-12-03] MEDS ORDERED: PHEN-939 PO (10:03)
[2016-12-03] MEDS ORDERED: OXYCODONE/ACETAMINOPHEN 5-325 TAB PO PRN (10:15)
[2016-12-03] MEDS ORDERED: PHENAZOPYRIDINE HCL 100 MG TAB PO PRN (10:15)
--- NOTE | 2016-12-03 10:28 | DIAGNOSTIC IMAGING REPORT ---
RETROGRADE INCLUDES KUB HISTORY: RIGHT STENT, POSSIBLE LASER FLUOROSCOPY TIME: 31 seconds. FINDINGS: 4 fluoroscopic spot images were submitted for review. Initial images demonstrate contrast opacification the right ureter and a retrograde fashion. This is followed by placement of a right ureteral stent. Only the proximal portion of the stent is identified and appears to be in good position. IMPRESSION: Fluoroscopy provided for right ureteral stent placement.. Electronically signed by: Garrett Jean Baptiste M.D. 12/03/2016 10:27 AM Dictated Date/Time: 12/03/2016 10:26 AM
[2016-12-03 10:38] VITALS: BP 136/83; PULSE 74; TEMP 37; O2SAT 94
[2016-12-03] MEDS: METOPROLOL TARTRATE 25 MG TAB PO SCH (11:16)
--- NOTE | 2016-12-03 11:22 | Anesthesiology Progress Note ---
Anesthesia Post Op Note Date & Time Dec 03, 2016 at 11:22 Vital Signs Pain Intensity: 0 Vital Signs Past 12 Hours Date Time Temp Pulse Resp B/P (MAP) Pulse Ox O2 Delivery O2 Flow Rate FiO2 12/03/16 10:38 37.0 74 16 136/83 (100) 94 Room Air 12/03/16 10:15 60 16 158/76 91 Room Air 12/03/16 10:05 36.0 56 16 123/75 98 Mask 10 12/03/16 09:58 36.0 62 16 145/78 98 Mask 10 12/03/16 07:56 36.8 73 18 143/85 (104) 93 Room Air 12/03/16 07:45 Room Air 12/03/16 00:27 36.6 57 18 119/70 (86) 96 Room Air 12/03/16 00:00 94 Room Air Notes Mental Status: alert / awake / arousable, participated in evaluation Pt Amnestic to Procedure: Yes Nausea / Vomiting: adequately controlled Pain: adequately controlled Airway Patency, RR, SpO2: stable & adequate BP & HR: stable & adequate Hydration State: stable & adequate Anesthetic Complications: no major complications apparent
--- NOTE | 2016-12-03 11:31 | [facility] Operative Report ---
Operative Report Operative Date Dec 03, 2016. Pre-Operative Diagnosis Right ureteral and renal stones, solitary kidney Post-Operative Diagnosis Same as preop Procedure(s) Performed Cystoscopy, Right Retrograde pyleogram, right Ureteral Stent insertion Surgeon Dr. Derian Cespedes Biomass Plant Technician Surgeon(s) NA Estimated Blood Loss 0 ml Findings Good stent position after completion of case. Specimens None, as per surgeon Drains 6 fr multilength ureteral stent Anesthesia MAC Complication(s) None Disposition Recovery Room / PACU Indications Patient is a pleasant 56-year-old female well-known to our service was admitted with intractable right flank pain. On ER evaluation she was found to have 3 stones within the right ureter and several stones in the kidney as well. A history of solitary kidney on the right-hand side due to a left renal cell carcinomas noted. Creatinine has remained normal throughout her admission. She has passed several stones overnight from her solitary kidney on KUB imaging this morning evidence of a distal stone persists. In addition she continues to have right-sided nonobstructing stones. She is being brought in for right ureteral stent placement due to her solitary kidney status and stone passage. Risks and benefits of intervention have been discussed and the patient vocalizes good understanding the treatment plan. She's been covered with cephalosporins as an inpatient and ciprofloxacin was provided in addition this morning preoperatively. Please see urology consultation for further details. Description of Procedure Patient was properly identified and brought into the operative suite after identification of appropriate consent of the chart. Mac anesthesia was initiated and patient was prepped and draped in standard fashion for this procedure. Full timeout procedure was followed. 22 Liberian rigid cystoscope was placed in the bladder direct visualization the bladder was surveyed in its entirety demonstrating no intravesical lesions, papillary masses, mucosal abnormalities or calculi. Ureteral orifices were appreciated in the normal anatomic location bilaterally. On accounting professor imaging stone was not as evident as on KUB. Right-sided ureteral orifice was addressed and gentle retrograde pyelography was performed. This demonstrated a normal caliber ureter up to the level of the kidney. A sensor tip wire was advanced up to the level of the right renal pelvis followed by multilength ureteral catheter with several coils present within the renal pelvis and a double coil present within the bladder. Hydronephrotic drip was appreciated. Patient tolerated the procedure well. Bladder was drained and cystoscope was removed. Anesthesia was reversed patient was transferred to the recovery room in stable condition. Follow-up care: Patient should be stable for discharge home this afternoon. Prescriptions for Pyridium, ciprofloxacin and Percocet or placed within her chart. We'll arrange for right-sided ureteroscopy as an outpatient to clear her kidney and ureter of stone. Patient to contact our service with any postoperative difficulties. I attest to the content of the Intraoperative Record and any orders documented therein. Any exceptions are noted below.
[2016-12-03 14:19] VITALS: BP 136/83; PULSE 74; TEMP 37; O2SAT 94
--- NOTE | 2016-12-03 19:08 | Discharge Summary ---
Discharge Summary Date of Service Dec 03, 2016. Discharge Summary Admission Date: Dec 02, 2016 at 13:57 Discharge Date: Dec 03, 2016 Discharge Disposition: Home Principal Diagnosis: obstructive uropathy Immunizations: Have You Had Influenza Vaccine: No History of Tetanus Vaccine?: Yes History of Pneumococcal: No History of Hepatitis B Vaccine: Yes Medication Reconciliation New Medications: Ciprofloxacin (Cipro) 250 Mg Tab 250 MG PO BID, #6 TAB Oxycodone/Acetaminophen 5MG/325MG (Percocet 5MG/325MG) Tab 1 TABLET PO Q4H PRN for Pain, #20 TAB Phenazopyridine Hcl (Pyridium) 100 Mg Tab 100 MG PO Q8 PRN for Bladder pain, #20 TAB Continued Medications: Ibuprofen (Motrin) 600 Mg Tab 600 MG PO DAILY PRN for Pain or Fever, TAB TAKE WITH FOOD Lisinopril (Lisinopril) 10 Mg Tab 10 MG PO QAM Metoprolol Tartrate (Lopressor) 25 Mg Tab 12.5 MG PO QAM, TAB Venlafaxine Hcl (Effexor Xr) 75 Mg Cap 75 MG PO QAM for 30 Days, #30 CAP 1 Refill [Vitamin B-12 Inj] () INJ MONTHLY Discharge Exam Review of Systems: Constitutional: No fever, No chills, No sweats, No weight loss, No weakness , No fatigue, No problem reported Eyes: No worsening of vision, No eye pain, No redness, No discharge, No diplopia, No problem reported ENT: No hearing loss, No unusual epistaxis, No nasal symptoms, No sore throat, No tinnitus, No dental problems, No trouble swallowing, No problem reported Respiratory: No cough, No sputum, No wheezing, No shortness of breath, No dyspnea on exertion, No dyspnea at rest, No hemoptysis, No problem reported Cardiovascular: No chest pain, No orthopnea, No PND, No edema, No claudication, No palpitations, No problem reported Abdomen: No pain, No nausea, No vomiting, No diarrhea, No constipation, No GI bleeding, No problem reported Musculoskeletal: No joint pain, No muscle pain, No swelling, No calf pain, No problem reported Neurologic: No memory loss, No paralysis, No weakness, No numbness/tingling , No vertigo, No balance problems, No problem reported Psychiatric: No depression symptoms, No anhedonism, No anxiety, No insomnia , No substance abuse, No problem reported Endocrine: No fatigue, No excessive thirst, No excessive urination, No problem reported Hematologic / Lymphatic: No abnormal bleeding/bruising, No clotting problems , No swollen lymph nodes, No night sweats, No problem reported Integumentary: No rash, No itch, No new/changing skin lesions, No color change, No bleeding, No problem reported Physical Exam: General Appearance: WD/WN, no apparent distress Eyes: normal inspection, EOMI ENT: normal ENT inspection, hearing grossly normal Neck: supple Respiratory/Chest: chest non-tender, lungs clear, normal breath sounds Cardiovascular: regular rate, rhythm, no edema, no gallop, no JVD, no murmur Abdomen / GI: normal bowel sounds, non tender, soft, no organomegaly, no pulsatile mass, occult blood negative Extremities: normal inspection, no calf tenderness, normal capillary refill , no pedal edema Neurologic/Psychiatric: maternal child nurse II-XII nml as tested, no motor/sensory deficits , alert, normal mood/affect, normal reflexes, oriented x 3 Skin: normal color, warm/dry, no rash Hospital Course 56 years old female with past medical history of status post left nephrectomy for renal cell cancer, presented to the hospital with right renal angle pain. Imaging showed Right ureteral calculi 3 with moderate right hydronephrosis She was admitted to medical surgical floor. Started on IV fluids and ceftriaxone Consulted her urologist Dr. Benson. Urine culture was sent and needs to be followed by primary care physician as an outpatient She was continued and her blood pressure medication and depression medications seen by urologist and went Cystoscopy, Right Retrograde pyleogram, right Ureteral Stent insertion Stable for discharge home and will follow up with urologist as an outpatient Total Time Spent: Less than 30 minutes This includes examination of the patient, discharge planning, medication reconciliation, and communication with other providers. Discharge Instructions Please refer to the electronic Patient Visit Report (Discharge Instructions) for additional information.
[2016-12-11] MEDS ORDERED: PHEN-876 PO (16:23)
[2016-12-11] MEDS ORDERED: OXYC-57 PO (16:23)
[2016-12-17] MEDS ORDERED: CIPR-255 PO (15:48)
== END 2016-12-03 14:39 | disposition home or self-care (01) | DRG 694 ==
LOC: C.EDB 12:01 → C.MS4W 13:57 → ENRESERV 14:24
PROVIDERS: ADMIT Hospitalist; ATTEND Internal Medicine
PROC: 0T768DZ Dilation of Right Ureter with Intraluminal Device, Via Natural or Artificial Opening Endoscopic (ICD-10-PCS; principal; 2016-12-03 08:30)
PROC: BT16ZZZ Fluoroscopy of Right Ureter (ICD-10-PCS; principal; 2016-12-03 08:30)
DX: N13.2 Hydronephrosis with renal and ureteral calculous obstruction (principal); Z90.5 Acquired absence of kidney; Z87.442 Personal history of urinary calculi; Z85.528 Personal history of other malignant neoplasm of kidney; I10 Essential (primary) hypertension; F32.9 Major depressive disorder, single episode, unspecified; E53.8 Deficiency of other specified B group vitamins; E66.9 Obesity, unspecified; Z68.39 Body mass index [BMI] 39.0-39.9, adult; Z98.84 Bariatric surgery status; Z79.899 Other long term (current) drug therapy; Z83.3 Family history of diabetes mellitus; Z82.49 Family history of ischemic heart disease and other diseases of the circulatory system

== ENCOUNTER → 2016-12-08 | Outpatient (CLI) | payer BC ==
[~2016-12-08] MED LIST changes: +CIPR250T3 PO; -DTR5 PO; +IBUP-1450 PO; -PHEN-1043 PO; +PHEN-876 PO; +PHEN-939 PO
--- NOTE | 2016-12-08 14:07 | DIAGNOSTIC IMAGING REPORT ---
KUB CLINICAL HISTORY: Nephrolithiasis. FINDINGS: Two AP supine abdominal radiographs are compared to study dated 12/03/2016 and correlated with abdominal CT dated 12/02/2016. A right ureteral stent is new from previous. No calcifications are seen along the course of the stent. There are at least three calculi projecting over the lower pole of the right kidney measuring up to 7 mm. The left kidney is surgically absent. Suture material and surgical clips are seen in the left upper quadrant. Vascular calcifications are seen in the left lower quadrant in the pelvis. There is a nonobstructed abdominal bowel gas pattern. The skeletal structures appear osteopenic. The bony pelvis appears intact. IMPRESSION: 1. A right ureteral stent is new from previous. No calcifications are seen along the course of the stent. 2. Nonobstructing right renal calculi as above. Dictated: 12/08/2016 2:02 PM Transcribed: 12/08/2016 2:06 PM Tarsha Electronically signed by: Luis Armando Aldana M.D. 12/08/2016 2:10 PM Dictated Date/Time: 12/08/2016 2:02 PM
== END | disposition home or self-care (01) ==
LOC: C.RAD 13:30
PROVIDERS: ATTEND Urology
DX: N20.0 Calculus of kidney (principal)

== ENCOUNTER 2016-12-17 11:18 | Day surgery (SDC) | payer BC ==
[2016-12-11 16:04] VITALS: BMI 39.0
[~2016-12-17] VITALS: Ht 154.9 cm; Wt 94.1 kg
[~2016-12-17 11:18] MED LIST changes: -CIPR-255 PO; -CIPR250T3 PO; +CIPROFLOXACIN / D5W 400 MG IV SCH; +GENTAMICIN INJ 120 MG in DEXTROSE 5% 100ML 100 ML IV SCH; +LACTATED RINGER'S 1000ML 1,000 ML IV SCH; -PHEN-939 PO
[2016-12-17 11:41] VITALS: BP 150/88; PULSE 82; TEMP 36.9; O2SAT 95; Ht 154.9 cm; Wt 94.1 kg
[2016-12-17] MEDS ORDERED: ATROPINE SULFATE 0.1 MG/ML 5ML SYR IV PRN (13:15)
[2016-12-17] MEDS ORDERED: MEPERIDINE HCL 25 MG/ML CARP IV PRN (13:15)
[2016-12-17] MEDS ORDERED: NALOXONE HCL 0.4 MG/1 ML VIAL/CARP IV PRN (13:15)
[2016-12-17] MEDS ORDERED: LABETALOL HCL IV 5 MG/ML 20ML IV PRN (13:15)
[2016-12-17] MEDS ORDERED: EpHEDrine SULFATE INJ 50 MG/ML AMP IV PRN (13:15)
[2016-12-17] MEDS ORDERED: ONDANSETRON INJ 2 MG/ML 2 ML VIAL IV PRN (13:15)
[2016-12-17] MEDS ORDERED: PHENYLEPHRINE 100MCG/ML 5ML SYR IV PRN (13:15)
[2016-12-17] MEDS ORDERED: FLUMAZENIL 0.1 MG/1 ML 10 ML VIAL IV PRN (13:15)
[2016-12-17] MEDS ORDERED: HYDROmorphone INJ 2 MG/ML SYR/VIAL IV PRN (13:15)
--- NOTE | 2016-12-17 14:22 | History & Physical Bridge Note ---
H&P Re-Evaluation Bridge Note: I have examined the patient, reviewed the History & Physical and in the interval since the performance of the History & Physical I have noted the following changes of clinical significance: No changes noted
[2016-12-17] MEDS ORDERED: LIDOCAINE HCL 2% 2 ML VIAL (20MG/ML) ONE (14:26)
[2016-12-17] MEDS ORDERED: ONDANSETRON INJ 2 MG/ML 2 ML VIAL ONE (14:26)
[2016-12-17] MEDS ORDERED: DEXAMETHASONE SOD INJ 4 MG/ML VIAL ONE ×2 (14:26→14:57)
[2016-12-17] MEDS ORDERED: PROPOFOL IV EMULSION 10 MG/ML 20 ML VIAL IV ONE (14:27)
[2016-12-17] MEDS ORDERED: FENTANYL CITRATE INJ 50 MCG/1 ML 2 ML VIAL ONE (14:27)
[2016-12-17] MEDS ORDERED: CONRAY 30% 150ML BOTTLE ONE (14:36)
[2016-12-17] MEDS ORDERED: PHENYLEPHRINE 100MCG/ML 5ML SYR ONE (14:57)
[2016-12-17] MEDS ORDERED: EpHEDrine SULFATE 50MG/5ML SYR ONE (15:00)
--- NOTE | 2016-12-17 15:41 | DIAGNOSTIC IMAGING REPORT ---
RETROGRADE INCLUDES KUB CLINICAL HISTORY: RT CYSTO/LASER/STENT EXCHANGE TECHNIQUE: Image intensifier COMPARISON STUDY: None FINDINGS: Image intensifier was used for right ureteral stent replacement/exchange IMPRESSION: Image intensifier utilized for right ureteral stent replacement/exchange The above report was generated using voice recognition software. It may contain grammatical, syntax or spelling errors. Electronically signed by: Eladio Garcia M.D. 12/17/2016 3:40 PM Dictated Date/Time: 12/17/2016 3:40 PM
[2016-12-17] MEDS: FENTANYL CITRATE INJ 50 MCG/1 ML 2 ML VIAL IV PRN ×4 (15:46→16:03)
[2016-12-17] MEDS ORDERED: CIPR-255 PO (15:48)
--- NOTE | 2016-12-17 15:49 | Discharge Instructions ---
Discharge Instructions Date of Service Dec 17, 2016. Admission Reason for Admission: Stones Discharge Discharge Diagnosis / Problem: R ureteral and renal stones in solitary kidney s /p uscope, laser, stent Discharge Goals Goal(s): Improve function, Improve disease control, Therapeutic intervention Activity Recommendations Activity Limitations: as noted below Lifting Limitations: no more than 25 pounds, gradually increase as tolerated Exercise/Sports Limitations: rest today, gradually increase as tolerated May Resume Sexual Activity: when tolerated Shower/Bathe: no limitations Driving or Machine Use: resume 1 day after discharge . Instructions / Follow-Up Instructions / Follow-Up Follow-up in office as planned for stent removal after KUB Xray prior Discharge Diet Recommended Diet: Regular Diet (good fluid intake) Procedures Procedures Performed: Cystoscopy, Right Retrograde Pyelogram, Right Semi-rigid and flexible Ureteroscopy, Basket Stone Extraction, Laser Lithotripsy, Right Stent Exchange Pending Studies Studies pending at discharge: yes List of pending studies: Stone analysis Medical Emergencies . Who to Call and When: Medical Emergencies: If at any time you feel your situation is an emergency, please call 911 immediately. . Non-Emergent Contact Non-Emergency issues call your: Urologist Call Non-Emergent contact if: you have a fever, temperature is above 101, your pain is not controlled, your pain is worsening, your pain is unusual for you, your pain is concerning you, you have any medication questions . . "Provider Documentation" section prepared by Jamari Cespedes. . VTE Core Measure Inpt VTE Proph given/why not?: SCD's
--- NOTE | 2016-12-17 15:52 | [facility] Post Operative Brief Note ---
Immediate Operative Summary Operative Date Dec 17, 2016. Pre-Operative Diagnosis Right renal and ureteral stones in solitary kidney Post-Operative Diagnosis Right renal and ureteral stones in solitary kidney Procedure(s) Performed Cystoscopy, Right Retrograde Pyelogram, Right Semi-rigid and flexible Ureteroscopy, Basket Stone Extraction, Laser Lithotripsy, Right Stent Exchange Surgeon Dr. Jamari Cespedes Fork Lift Technician Surgeon(s) NA Estimated Blood Loss none Findings No residual stones on fluoro or direct visualization, no ureteral injury, good stent position on fluoro Specimens A: Right renal and ureteral stones for chemical analysis Drains 6 fr 26 loop stent Anesthesia GALMA Complication(s) None Disposition Recovery Room / PACU
--- NOTE | 2016-12-17 15:58 | [facility] Operative Report ---
Operative Report Operative Date Dec 17, 2016. Pre-Operative Diagnosis Right renal and ureteral stones in solitary kidney Post-Operative Diagnosis Right renal and ureteral stones in solitary kidney Procedure(s) Performed Cystoscopy, Right Retrograde Pyelogram, Right Semi-rigid and flexible Ureteroscopy, Basket Stone Extraction, Laser Lithotripsy, Right Stent Exchange Surgeon Dr. Jamari Cespedes Train Conductor Surgeon(s) NA Estimated Blood Loss none Findings No residual stones on fluoro or direct visualization, no ureteral injury, good stent position on fluoro Specimens A: Right renal and ureteral stones for chemical analysis Drains 6 fr 26 loop stent Anesthesia GALWV Disposition Recovery Room / PACU Indications 56-year-old female who had undergone right acute ureteral stent placement for obstructing ureteral stones solitary kidney and possible infection who is here today to attempt to clear her right renal moiety of stones with ureteroscopy. Please see H&P for further details. Intravenous ciprofloxacin provided for antibiotic coverage and SCDs used for DVT prophylaxis. Consent is reviewed in the chart properly with patient. Description of Procedure Patient was properly identified and brought to the operative suite after identification of appropriate consent of the chart. General anesthesia with laryngeal mask was patient was prepped and draped in the standard fashion for this procedure. Full timeout procedure was followed. 22 [place] rigid cystoscope was passed into the bladder direct visualization and the ureteral stent in the right-hand side was grasped and brought up to the level of the meatus. This was cannulated using a sensor tip wire which was advanced up to the level of the right kidney kept until the end of the case as a safety wire. Open-ended 5 [place] Pollack catheter was advanced level of the right renal pelvis and the electing system was opacified for retrograde pyelogram and defining her anatomy. Sensor wire was replaced and a semirigid ureteroscope was able to be advanced up the ureter easily without the need for dilation. In the distal ureter ureteral stone consistent with the patient's previous findings prior to stent placement was appreciated. This was small and after stent dilation was easily able to be removed with a 0 tip basket without resistance or injury. Semirigid ureteroscope was advanced up to the level of the proximal ureter with no residual stones being appreciated. Working sensor tip wire was advanced through the semirigid ureteroscope which was backloaded off the wire with exit ureteroscopy being performed. A 03/18 28 cm ureteral access sheath was placed and a flexible ureteroscope, fiberoptic, was advanced up to the level of the right renal pelvis. Complete pyeloscopy was performed and further opacification of the collecting system with Conray to ensure no missed calyces was performed as needed. Stones were encountered within the mid and lower pole calyces which were fractured using a 200 laser fiber at a setting of 0.8 J and 12 Hz. When stones were sufficiently small for easy removal an opened backed basket was used to extract the pieces. This was continued until every piece of stone that had been encountered or visualized was were extracted. Complete pyeloscopy was repeated with no residual stones or injuries noted. Complete exit ureteroscopy including removal of the access sheath was performed again demonstrating no stones or ureteral injuries. Cystoscope was backloaded over the safety wire and a 6 [place]ican 26 cm loop stent was advanced with a full coil present at the level of the renal pelvis and redundant loops present within the bladder. Bladder was drained and cystoscope was removed. Anesthesia was reversed and patient was transferred to the recovery room in stable condition. Follow-up care: Patient's provided with a short course of ciprofloxacin for postoperative coverage. She reports she has sufficient analgesics at home. Postoperative appointment for possible stent removal is confirmed. Patient's instructed to contact our service should she note any fevers, chills, nausea, vomiting or other significant difficulties in postoperative period. I attest to the content of the Intraoperative Record and any orders documented therein. Any exceptions are noted below.
[2016-12-17] MEDS ORDERED: OXYCODONE/ACETAMINOPHEN 5-325 TAB PO PRN ×2 (16:00)
[2016-12-17] MEDS ORDERED: PHENAZOPYRIDINE HCL 100 MG TAB PO PRN (16:00)
--- NOTE | 2016-12-17 16:13 | Anesthesiology Progress Note ---
Anesthesia Post Op Note Date & Time Dec 17, 2016 at 16:13 Vital Signs Pain Intensity: 4 Vital Signs Past 12 Hours Date Time Temp Pulse Resp B/P (MAP) Pulse Ox O2 Delivery O2 Flow Rate FiO2 12/17/16 16:05 101 16 144/98 96 Room Air 12/17/16 15:55 93 10 141/85 89 Room Air 12/17/16 15:45 102 22 163/91 99 Oxymask 10 12/17/16 15:37 36.0 99 13 175/96 98 Oxymask 10 12/17/16 11:41 36.9 82 16 150/88 (108) 95 Room Air Notes Mental Status: alert / awake / arousable, participated in evaluation Pt Amnestic to Procedure: Yes Nausea / Vomiting: adequately controlled Pain: adequately controlled Airway Patency, RR, SpO2: stable & adequate BP & HR: stable & adequate Hydration State: stable & adequate Anesthetic Complications: no major complications apparent
[2016-12-17 16:25] VITALS: BP 139/69; PULSE 104; TEMP 37.2; O2SAT 93
[2016-12-17] MEDS ORDERED: OXYCODONE/ACETAMINOPHEN 5-325 TAB ONE (16:41)
[2016-12-17 16:55] VITALS: BP 142/65; PULSE 108; O2SAT 93
[2016-12-17 17:15] VITALS: BP 128/61; PULSE 102; TEMP 37; O2SAT 95
== END 2016-12-17 17:15 | disposition home or self-care (01) ==
LOC: C.ACU 11:18
PROVIDERS: ATTEND Urology
DX: N20.2 Calculus of kidney with calculus of ureter (principal); Q60.0 Renal agenesis, unilateral; I12.9 Hypertensive chronic kidney disease with stage 1 through stage 4 chronic kidney disease, or unspecified chronic kidney disease; N18.3 Chronic kidney disease, stage 3 (moderate); E53.8 Deficiency of other specified B group vitamins; Z79.84 Long term (current) use of oral hypoglycemic drugs; Z79.899 Other long term (current) drug therapy

== ENCOUNTER → 2016-12-30 | Outpatient (CLI) | payer BC ==
[~2016-12-30] MED LIST changes: +CIPR-255 PO; -CIPROFLOXACIN / D5W 400 MG IV SCH; -GENTAMICIN INJ 120 MG in DEXTROSE 5% 100ML 100 ML IV SCH; -LACTATED RINGER'S 1000ML 1,000 ML IV SCH
--- NOTE | 2016-12-30 15:06 | DIAGNOSTIC IMAGING REPORT ---
KUB HISTORY: Right-sided stone. N20.0 Nephrolithiasis COMPARISON: KUB 12/08/2016. FINDINGS: The bowel gas pattern is unremarkable. There are no dilated loops of small bowel to suggest an obstruction. The right ureteral stent is in good position. Pelvic calcifications remain stable and are consistent with phleboliths. The right renal calculi seen on the prior studies are obscured by overlying bowel gas. Suture material within the left upper quadrant. No left renal or left ureteral calculi. No pneumoperitoneum or pneumatosis. IMPRESSION: 1. The right ureteral stent is in good position. 2. No ureteral calculi identified. 3. The right renal calculi seen on the prior studies are obscured by overlying bowel gas. Electronically signed by: Garrett Jean Baptiste M.D. 12/30/2016 3:05 PM Dictated Date/Time: 12/30/2016 3:03 PM
== END | disposition home or self-care (01) ==
LOC: C.RAD 14:44
PROVIDERS: ATTEND Urology
DX: N20.0 Calculus of kidney (principal)

== ENCOUNTER → 2017-01-25 | Outpatient (CLI) | payer BC ==
--- NOTE | 2017-01-25 08:36 | DIAGNOSTIC IMAGING REPORT ---
ABD/PELVIS NO IV OR ORAL CONT CT DOSE: 1050.66 mGycm HISTORY: Nephrocalcinosis N20.0 Nephrolithiasis TECHNIQUE: Multiaxial CT images of the abdomen and pelvis were performed without contrast. A dose lowering technique was utilized adhering to the principles of ALARA. COMPARISON STUDY: 12/02/2016 FINDINGS: Lung bases are clear. Liver spleen and pancreas are unremarkable. Findings of a prior left refractory. Calcifications the right kidney are diminished in size as well as number. There is a small residual 2 mm faint calcification posterior aspect right lower pole. Hydronephrosis previously described has resolved. Ureters normal in course and caliber. Bladder is midline. Bowel pattern overall is nonobstructive. There are several small scattered colonic diverticuli with no evidence of diverticulitis. IMPRESSION: 1. Improved exam from the prior study. 2. Considerable decrease in size as well as number of right ureteral /renal calcifications 3. Residual 2 mm nonobstructing calcification lower pole right kidney. 4. Interval passage of the right ureteral calcifications previously described no current evidence for hydronephrosis. 5. Status post left nephrectomy The above report was generated using voice recognition software. It may contain grammatical, syntax or spelling errors. Electronically signed by: Eladio Garcia M.D. 01/25/2017 8:34 AM Dictated Date/Time: 01/25/2017 8:30 AM
== END | disposition home or self-care (01) ==
LOC: C.CTS 08:09
PROVIDERS: ATTEND Urology
DX: N20.0 Calculus of kidney (principal); Z90.5 Acquired absence of kidney

== ENCOUNTER → 2017-10-27 | Outpatient (CLI) | payer BC ==
[~2017-10-27] MED LIST changes: -VENL75CA PO; +VENL75CA94 PO
--- NOTE | 2017-10-27 13:50 | DIAGNOSTIC IMAGING REPORT ---
KUB HISTORY: Acute right-sided flank pain with history of nephrolithiasis N20.0 [id number] COMPARISON: KUB 12/30/2016, CT 01/25/2017. FINDINGS: Status post removal of right-sided ureteral stent. No definite renal or ureteral calculi identified. Calcifications of the pelvis suggest phleboliths. Surgical suture material projects over the abdominal left upper quadrant. Bowel gas pattern is nonobstructive. Degenerative changes of the spine and hips. IMPRESSION: No renal or ureteral calculi identified. Electronically signed by: Simone Blankenship M.D. 10/27/2017 1:49 PM Dictated Date/Time: 10/27/2017 1:40 PM
== END | disposition home or self-care (01) ==
LOC: C.RAD 13:20
PROVIDERS: ATTEND Urology
DX: N20.0 Calculus of kidney (principal)